=== PATIENT | male | born 1960 | race African-American/Black ===

== ENCOUNTER → 2018-03-23 | Outpatient (CLI) | payer BC ==
[~2018-03-23] VITALS: Ht 193 cm; Wt 136.1 kg
[~2018-03-23] MED LIST: AMLODIPINE-BEN1 EACH PO; CATAPRES0.2 MG PO; IRON325 PO; ZOCOR20 MG PO
--- NOTE | ~2018-03-23 | PATH ---
[facility] [place] [address] PATHOLOGY RPT PROCEDURE Name: CHRISTINE MAR Room #: REG [facility] Adalberto.#: [id number] Admission: 03/23/18 Date of : 56 Discharge: Report #: [id number] Path Case #: [id number] [facility] Accession Number: [id number] . 01 Material submitted: . PART A: POLYP AT TRANSVERSE COLON X2 PART B: POLYP AT SIGMOID COLON PART C: POLYP AT RECTUM . 01 Clinical history: . Screening . 02 Diagnosis: A. Polyp x 2, transverse colon, endoscopic biopsy: - Hyperplastic polyp identified in one fragment without any dysplasia. - Remainder fragments showing reactive changes without any dysplasia. . B. Polyp, at sigmoid colon, endoscopic biopsy: - Tubular adenoma. - Negative for high-grade dysplasia. - Margins showing unremarkable mucosa. . C. Polyp, at rectum, endoscopic biopsy: - Tubular adenoma. - Negative for high-grade dysplasia. (IUV:pit 03/24/2018) QTP/03/24/2018 . 02 Electronically signed: . Sadia Ryder MD, Pathologist NPI- [id number] . 01 Gross description: . A. Received in formalin labeled "Christien Mar, polyp transverse colon," are 4 segments of weems soft tissue measuring 0.9 x 0.5 x 0.2 cm in aggregate dimensions and ranging from 0.3 to 0.6 cm in maximum dimension. The specimen is submitted entirely in cassette A1. . B. Received in formalin labeled "Christine Mar, polyp at sigmoid colon," is a 0.8 x 0.5 x 0.5 cm polypoid piece of weems soft tissue. The margin is inked and the specimen is sectioned perpendicular to the margin and entirely submitted in cassette B1. . C. Received in formalin labeled "Christine Mar, polyp at rectum," is a single segment of weems soft tissue measuring 0.7 cm in maximum dimension. The specimen is entirely submitted in cassette C1. (TSD; 03/23/2018) [address] [address] PATHOLOGY RPT PROCEDURE Name: CHRISTINE MAR Room #: REG CL Rae#: [id number] Admission: 03/23/18 Date of : 56 Discharge: Report #: [id number] Path Case #: [id number] TOB/TOB . 02 Pathologist provided ICD-10: K63.5, D12.5, D12.8 . 02 CPT . 444664, 906021, 184170 Specimen Comment: A courtesy copy of this report has been sent to Specimen Comment: [phone], . Specimen Comment: Report sent to / DR JORGE Performed at: [address], [place] [id number] MD Reji Pederson MD Phone: [phone] Performed at: [address] [id number] MD Sadia Ryder MD Phone: [phone]
== END | disposition home or self-care (01) ==
LOC: GI 08:29
DX: D12.5 Benign neoplasm of sigmoid colon (principal); D12.8 Benign neoplasm of rectum; K63.5 Polyp of colon; I10 Essential (primary) hypertension; E78.5 Hyperlipidemia, unspecified; E78.00 Pure hypercholesterolemia, unspecified; G47.33 Obstructive sleep apnea (adult) (pediatric); Z98.890 Other specified postprocedural states; Z79.899 Other long term (current) drug therapy; Z87.891 Personal history of nicotine dependence
CPT/HCPCS: 62110; 62900

== ENCOUNTER → 2018-06-29 | Outpatient (CLI) | payer BC | LOC: RAD 11:58 | DX: M25.562 Pain in left knee (principal) ==

== ENCOUNTER → 2021-03-15 | Outpatient (CLI) | payer BC ==
[~2021-03-15] MED LIST changes: +FISH OIL 1,0001 EAC9 PO; +LOSARTAN POTASS50 MG PO; +MELOXICAM15 MG PO; +NORVASC10 MG PO
== END ==
LOC: LAB 05:49
PROVIDERS: ATTEND Student in an Organized Health Care Education/Training Program
DX: Z01.812 Encounter for preprocedural laboratory examination (principal); Z20.822 Contact with and (suspected) exposure to COVID-19

== ENCOUNTER → 2021-03-19 | Outpatient (CLI) | payer BC ==
[~2021-03-19] VITALS: Ht 193 cm; Wt 129.7 kg
--- NOTE | 2021-03-21 15:07 | PATH ---
[facility] [place] [address] PATHOLOGY RPT PROCEDURE Name: CHRISTINE MAR Room #: REG [facility] Adalberto.#: [id number] Admission: 03/19/21 Date of : 56 Discharge: Report #: [id number] Path Case #: [id number] [facility] Accession Number: [id number] . 01 Material submitted: . colon - TRANSVERSE COLON POLYP. Modifiers: transverse . 01 Clinical history: . COLONOSCOPY HX OF COLON POLYPS . 02 Diagnosis: Colonic mucosa (transverse colon polyp): - Polypoid colonic mucosa with mild chronic inflammation. (KINA:kyle; 03/21/2021) [facility] 03/21/2021 1316 Local . 02 Comment: We find no evidence of high grade dysplasia or of malignancy. (KINA:kyle; 03/21/2021) . 02 Electronically signed: . Raphael Clark MD, Pathologist NPI- [id number] . 01 Gross description: . The specimen is received in formalin, labeled "Christine Mar, transverse colon polyp". Received are 2 segments of pale weems tissue measuring 0.7 and 1.0 cm in greatest dimensions. The specimen is entirely submitted in cassette A1. ([facility]; 03/20/2021) NRI/NRI 03/20/2021 1634 Local . 02 Pathologist provided ICD-10: K52.9 . 02 CPT . 417307 Specimen Comment: A courtesy copy of this report has been sent to [phone] Specimen Comment: [phone] Specimen Comment: Report sent to / DR JORGE Performed [facility]: [facility] [address] [place] [id number] MD Jayant Sams MD Phone: [phone] Performed at: [address] [place] [address] PATHOLOGY RPT PROCEDURE Name: CHRISTINE MAR Room #: REG CLI [facility].#: [id number] Admission: 03/19/21 Date of : 56 Discharge: Report #: [id number] Path Case #: [id number] [facility] [address] [place] [id number] MD Raphael Clark MD Phone: [phone]
== END | disposition home or self-care (01) ==
LOC: GI 07:11
PROVIDERS: ATTEND Internal Medicine Gastroenterology
DX: Z12.11 Encounter for screening for malignant neoplasm of colon (principal); Z86.010 Personal history of colon polyps; K52.9 Noninfective gastroenteritis and colitis, unspecified; I10 Essential (primary) hypertension; E78.5 Hyperlipidemia, unspecified; Z98.890 Other specified postprocedural states; Z79.899 Other long term (current) drug therapy; Z87.891 Personal history of nicotine dependence
CPT/HCPCS: 62110; 62900